=== PATIENT | male | born 1950 ===

== ENCOUNTER 2019-11-23 16:48 | Outpatient (REF) | payer MEDICARE, SELFPAY ==
[2019-11-23 21:37] LABS: Calculated LDL 116 mg/dL (<100); Cholesterol 183 mg/dL (<200); HDL Cholesterol 41 mg/dL (40-60); Triglyceride 134 mg/dL (<150)
[2019-11-27 10:33] LABS: PSA, Screening 1.8 ng/mL (0.0-4.5)
== END 2019-11-23 17:08 ==
LOC: NCHCN 16:48
PROVIDERS: PCP Internal Medicine; Visit Provider Internal Medicine
DX: E78.89 Other lipoprotein metabolism disorders (principal); Z12.5 Encounter for screening for malignant neoplasm of prostate
CPT/HCPCS: 80061; 84153

== ENCOUNTER 2020-11-19 17:06 | Outpatient (REF) | payer MEDICARE, SELFPAY ==
[2020-11-19 20:44] LABS: Anion Gap 10.6 mmol/L (3-11); BUN 28 mg/dL (7-18); CO2 27.4 mmol/L (21.0-32.0); CREATININE 1.3 mg/dL (0.70-1.30); Calcium 9.1 mg/dL (8.5-10.1); Chloride 106 mmol/L (98-107); Glucose 102 mg/dL (74-106); Potassium 4.4 mmol/L (3.5-5.1); Sodium 144 mmol/L (136-145)
== END 2020-11-19 17:07 | disposition home or self-care (01) ==
LOC: NCHCN 17:06
PROVIDERS: PCP Internal Medicine; Visit Provider Nurse Practitioner Family
DX: R00.1 Bradycardia, unspecified (principal)
CPT/HCPCS: 80048

== ENCOUNTER 2020-12-13 20:15 | Outpatient (REF) | payer MEDICARE, SELFPAY ==
[2020-12-13 20:57] LABS: Hemoglobin A1C 5.8 % (<5.7)
[2020-12-16 10:10] LABS: PSA, Screening 2.1 ng/mL (0.0-4.5)
== END 2020-12-13 20:16 | disposition home or self-care (01) ==
LOC: NCHCN 20:15
PROVIDERS: PCP Internal Medicine; Visit Provider Nurse Practitioner Family
DX: R73.9 Hyperglycemia, unspecified (principal); Z12.5 Encounter for screening for malignant neoplasm of prostate
CPT/HCPCS: 84153; 83036

== ENCOUNTER 2021-08-29 17:07 | Outpatient (REF) | payer MEDICARE, SELFPAY ==
[2021-08-29 20:38] LABS: HCT 40.7 % (40.0-50.0); HGB 13.5 g/dL (13.5-17.5); MCH 29.7 pg (27.0-33.0); MCHC 33.2 % (32.0-36.0); MCV 89.6 fL (80-95); MPV 12.3 fL (8.0-11.0); Platelet Count 188 10^3/uL (130-400); RBC 4.54 10^6/uL (4.36-5.78); RDW 12.7 % (11.8-14.1); WBC 4.72 10^3/uL (4.4-10.8)
[2021-08-29 20:51] LABS: Hemoglobin A1C 5.9 % (<5.7)
[2021-08-29 20:54] LABS: ALT 26 U/L (16-63); AST 25 U/L (15-37); Albumin 4.2 g/dL (3.4-5.0); Alkaline Phosphatase 59 U/L (46-116); Anion Gap 10.3 mmol/L (3-11); BUN 30 mg/dL (7-18); Bilirubin, Total 0.5 mg/dL (0.2-1.0); CO2 22.7 mmol/L (21.0-32.0); CREATININE 1.1 mg/dL (0.70-1.30); Calculated LDL 113 mg/dL (<100); Chloride 109 mmol/L (98-107); Cholesterol 202 mg/dL (<200); Glucose 106 mg/dL (74-106); HDL Cholesterol 42 mg/dL (40-60); Potassium 4.4 mmol/L (3.5-5.1); Sodium 142 mmol/L (136-145); Total Protein 7.1 g/dL (6.4-8.2); Triglyceride 237 mg/dL (<150)
== END 2021-08-29 17:08 | disposition home or self-care (01) ==
LOC: NCHCN 17:07
PROVIDERS: PCP Internal Medicine; Visit Provider Internal Medicine
DX: M25.59 Pain in other specified joint (principal); R73.03 Prediabetes
CPT/HCPCS: 80053; 80061; 85027; 83036

== ENCOUNTER 2022-02-03 19:36 | Outpatient (REF) | payer MEDICARE, SELFPAY ==
[2022-02-03 21:18] LABS: HCT 41.1 % (40.0-50.0); MCH 30.6 pg (27.0-33.0); MCHC 34.1 % (32.0-36.0); MCV 90 fL (80-95); MPV 12.9 fL (8.0-11.0); Platelet Count 163 10^3/uL (130-400); RBC 4.58 10^6/uL (4.36-5.78); RDW 12.6 % (11.8-14.1); RDW-SD 41.6 fL; WBC 6.73 10^3/uL (4.4-10.8)
== END 2022-02-03 19:37 | disposition home or self-care (01) ==
LOC: NCHCN 19:36
PROVIDERS: PCP Internal Medicine; Visit Provider Internal Medicine
DX: G47.00 Insomnia, unspecified (principal)
CPT/HCPCS: 85027

== ENCOUNTER 2023-11-17 14:52 | Outpatient (REF) | payer MEDICARE, SELFPAY ==
[2023-11-17 21:12] LABS: HCT 42.6 % (40.0-50.0); HGB 14.2 g/dL (13.5-17.5); MCH 30.1 pg (27.0-33.0); MCHC 33.3 % (32.0-36.0); MCV 90 fL (80-95); MPV 12.1 fL (8.0-11.0); Platelet Count 168 10^3/uL (130-400); RBC 4.72 10^6/uL (4.36-5.78); RDW 12.8 % (11.8-14.1); RDW-SD 42.2 fL; WBC 5.21 10^3/uL (4.4-10.8)
[2023-11-17 21:24] LABS: ALT 30 U/L (16-63); AST 25 U/L (15-37); Albumin 4.3 g/dL (3.4-5.0); Alkaline Phosphatase 61 U/L (46-116); Anion Gap 6.8 mmol/L (3-11); BUN 24 mg/dL (7-18); Bilirubin, Total 0.5 mg/dL (0.2-1.0); CO2 25.2 mmol/L (21.0-32.0); CREATININE 1.2 mg/dL (0.70-1.30); Calcium 8.8 mg/dL (8.5-10.1); Calculated LDL 116 mg/dL (<100); Chloride 106 mmol/L (98-107); Cholesterol 184 mg/dL (<200); Estimated GFR 64.65 (mL/min/1.73m2); Glucose 101 mg/dL (74-106); HDL Cholesterol 51 mg/dL (40-60); Potassium 4.5 mmol/L (3.5-5.1); Sodium 138 mmol/L (136-145); Total Protein 7.5 g/dL (6.4-8.2); Triglyceride 87 mg/dL (<150)
[2023-11-17 21:32] LABS: Hemoglobin A1C 5.9 % (<5.7)
[2023-11-18 19:29] LABS: PSA, Screening 4.3 ng/mL (<=6.5)
== END 2023-11-17 14:53 | disposition home or self-care (01) ==
LOC: NCHCN 14:52
PROVIDERS: PCP Internal Medicine; Visit Provider Internal Medicine
DX: R73.03 Prediabetes (principal)
CPT/HCPCS: 80053; 80061; 84153; 85027; 83036

== ENCOUNTER 2024-10-06 10:39 | Outpatient (REF) | payer MEDICARE, SELFPAY ==
[2024-10-06 14:21] LABS: HCT 44.2 % (40.0-50.0); HGB 14.7 g/dL (13.5-17.5); MCH 29.9 pg (27.0-33.0); MCHC 33.3 % (32.0-36.0); MCV 90 fL (80-95); MPV 12.5 fL (8.0-11.0); Platelet Count 156 10^3/uL (130-400); RBC 4.91 10^6/uL (4.36-5.78); RDW 12.5 % (11.8-14.1); RDW-SD 41.2 fL; WBC 3.65 10^3/uL (4.4-10.8)
[2024-10-06 14:52] LABS: ALT 21 U/L (16-63); AST 24 U/L (15-37); Albumin 4.2 g/dL (3.4-5.0); Alkaline Phosphatase 64 U/L (46-116); Anion Gap 7.8 mmol/L (3-11); BUN 18 mg/dL (7-18); Bilirubin, Total 0.5 mg/dL (0.2-1.0); CO2 29.2 mmol/L (21.0-32.0); CREATININE 1.3 mg/dL (0.70-1.30); Calcium 9.3 mg/dL (8.5-10.1); Calculated LDL 130 mg/dL (<100); Chloride 107 mmol/L (98-107); Cholesterol 188 mg/dL (<200); Estimated GFR 58.37 (mL/min/1.73m2); Glucose 94 mg/dL (74-106); HDL Cholesterol 47 mg/dL (>or=40); Potassium 4.7 mmol/L (3.5-5.1); Sodium 144 mmol/L (136-145); Total Protein 7.4 g/dL (6.4-8.2); Triglyceride 56 mg/dL (<150)
[2024-10-06 14:54] LABS: Hemoglobin A1C 5.7 % (<5.7)
== END 2024-10-06 10:40 | disposition home or self-care (01) ==
LOC: NCHCN 10:39
PROVIDERS: PCP Internal Medicine; Visit Provider Internal Medicine
DX: E66.3 Overweight (principal); R73.03 Prediabetes; Z12.5 Encounter for screening for malignant neoplasm of prostate
CPT/HCPCS: 80053; 80061; 84153; 85027; 83036